=== PATIENT | male | born 1955 | race Caucasian/White ===

== ENCOUNTER 2021-08-28 15:19 | Inpatient (IN) | payer MEDICARE ==
[~2021-08-28] VITALS: Ht 170.2 cm; Wt 65.0 kg
[~2021-08-28 15:19] MED LIST: ALBU8.5H17 INH; ALLO100T PO; ASCO-162 PO; ASPI81TA52 PO; MULT-1141 PO; VARE1TAB24 PO
[2021-08-28 15:57] LABS: BASOPHILS % (AUTO) 0.4 % (0-1); EOSINOPHILS % (AUTO) 0.4 % (0-6); HEMATOCRIT 33.5 % (42.0-52.0); HEMOGLOBIN 10.9 g/dl (14.0-17.9); LYMPHOCYTES # (AUTO) 1.3 X10'3 (1.1-4.8); LYMPHOCYTES % (AUTO) 10.8 % (21-51); MEAN CORPUSCULAR HEMOGLOBIN 29.7 PG (27.0-31.0); MEAN CORPUSCULAR HGB CONC 32.4 g/dL (33.0-36.5); MEAN CORPUSCULAR VOLUME 91.7 FL (78-98); MEAN PLATELET VOLUME 7.6 FL (7.4-10.4); MONOCYTES # (AUTO) 0.8 X10'3 (0-0.9); MONOCYTES % (AUTO) 6.7 % (2-12); NEUTROPHILS # (AUTO) 9.8 X10'3 (1.8-7.7); NEUTROPHILS % (AUTO) 81.7 % (42-75); PLATELET COUNT 464 X10'3 (140-440); RED BLOOD COUNT 3.65 X10'6 (4.70-6.10); RED CELL DISTRIBUTION WIDTH 15.4 % (11.5-14.5)
[2021-08-28 16:10] LABS: ALANINE AMINOTRANSFERASE 23 U/L (12-78); ALBUMIN/GLOBULIN RATIO 0.8 (1.1-1.5); ALKALINE PHOSPHATASE 83 IU/L (46-116); ANION GAP 15 (8-16); ASPARTATE AMINO TRANSFERASE 34 U/L (10-37); BILIRUBIN,TOTAL 0.5 MG/DL (0.1-1.0); BLOOD UREA NITROGEN 28 MG/DL (7-18); BUN/CREATININE RATIO 31.8 (5.4-32.0); CALCIUM 9.2 MG/DL (8.5-10.1); CHLORIDE 98 MMOL/L (99-107); CREATININE 0.88 MG/DL (0.60-1.10); GLUCOSE 95 MG/DL (70-104); POTASSIUM 4.3 MMOL/L (3.5-5.1); SODIUM 137 MMOL/L (135-145); TOTAL CARBON DIOXIDE 24.1 MMOL/L (24-32); TOTAL PROTEIN 6.9 G/DL (6.4-8.2); eGFR 86 ML/MIN
[2021-08-28] MEDS ORDERED: normal saline 1000ml 1,000 ML IV ONE (16:50)
[2021-08-28] MEDS ORDERED: normal saline 1000ML IV soln IVB ONE (16:50)
[2021-08-28] MEDS ORDERED: iohexol 350MG/ML 100ml bottle IV ONE (16:56)
[2021-08-28 18:04] LABS: APTT 25 SECONDS (22-32); D-DIMER 6.48 MG/L FEU (0-0.50)
--- NOTE | 2021-08-28 18:30 | NUR ---
Pt pink, alert, no acute/resp distress. PIV site c/d/i s complication or adverse reaction. Bed in lowest position, wheels locked, rails up. Will continue to monitor for acute changes and further needs.
[2021-08-28] MEDS ORDERED: CefTRIAXone 2gm/NS 100ml IVPB 100 ML IV ONE (18:50)
[2021-08-28] MEDS ORDERED: levoFLOXACIN-Levaquin 750MG/D5 150 ML IV ONE (18:50)
[2021-08-28] MEDS ORDERED: ondansetron/PF 4mg/2ml inj IV PRN (20:20)
[2021-08-28] MEDS ORDERED: ondansetron 4mg rapidly disintigrating tab PO PRN (20:20)
[2021-08-28] MEDS ORDERED: acetaminophen 650mg rectal suppository RC PRN (20:20)
[2021-08-28] MEDS ORDERED: diphenhydrAMINE 50 mg/ml inj IV PRN (20:20)
[2021-08-28] MEDS ORDERED: ipratropium/albuterol 3ml nebule NEB PRN (20:20)
[2021-08-28] MEDS ORDERED: magnesium hydroxide 30ml (MOM) UD suspension PO PRN (20:20)
[2021-08-28] MEDS ORDERED: naloxone 0.4 mg/ml inj IV PRN (20:20)
[2021-08-28] MEDS ORDERED: acetaminophen 325mg tablet PO PRN ×2 (20:20)
[2021-08-28] MEDS ORDERED: morphine 2 MG/ML inj. syringe IV PRN ×2 (20:20)
[2021-08-28] MEDS ORDERED: diphenhydrAMINE 25mg capsule PO PRN (20:20)
[2021-08-28] MEDS ORDERED: mag hydrox/Alum hydrox/simeth 30ml oral suspension PO PRN (20:20)
[2021-08-28] MEDS ORDERED: normal saline 1000ml 1,000 ML IV SCH (20:20)
[2021-08-28] MEDS ORDERED: bisacodyl 10mg suppository rectal RC PRN (20:20)
[2021-08-28] MEDS ORDERED: temazepam 15mg capsule PO PRN (21:00)
[2021-08-28 21:03] LABS: CREATINE KINASE 43 U/L (39-308); LIPASE 100 U/L (73-393); MAGNESIUM 2.1 MG/DL (1.5-2.4); PHOSPHORUS 4.9 MG/DL (2.3-4.5)
[2021-08-28] MEDS: azithromycin/NS 500mg/250ml 250 ML IV SCH (21:29)
--- NOTE | 2021-08-28 22:36 | NUR ---
Pt pink, alert, no acute/resp distress. PIV site c/d/i s complication or adverse reaction. Bed in lowest position, wheels locked, rails up. Will continue to monitor for acute changes and further needs. Pt changes position of comfort as needed.
[2021-08-28] MEDS: HYDROcodone/acetaminophen 5mg/325mg tablet PO PRN (22:38)
[2021-08-29 01:30] LABS: BASOPHILS # (AUTO) 0.1 X10'3 (0-0.2); BASOPHILS % (AUTO) 0.6 % (0-1); EOSINOPHILS # (AUTO) 0.1 X10'3 (0-0.9); EOSINOPHILS % (AUTO) 0.6 % (0-6); HEMOGLOBIN 10.1 g/dl (14.0-17.9); LYMPHOCYTES # (AUTO) 0.9 X10'3 (1.1-4.8); LYMPHOCYTES % (AUTO) 8.8 % (21-51); MEAN CORPUSCULAR HEMOGLOBIN 30.6 PG (27.0-31.0); MEAN CORPUSCULAR HGB CONC 33.6 g/dL (33.0-36.5); MEAN CORPUSCULAR VOLUME 91.2 FL (78-98); MEAN PLATELET VOLUME 7.3 FL (7.4-10.4); MONOCYTES # (AUTO) 0.8 X10'3 (0-0.9); MONOCYTES % (AUTO) 7.6 % (2-12); NEUTROPHILS # (AUTO) 8.9 X10'3 (1.8-7.7); NEUTROPHILS % (AUTO) 82.4 % (42-75); PLATELET COUNT 380 X10'3 (140-440); RED BLOOD COUNT 3.29 X10'6 (4.70-6.10); RED CELL DISTRIBUTION WIDTH 15.1 % (11.5-14.5); WHITE BLOOD COUNT 10.8 X10'3 (4.5-11.0)
--- NOTE | 2021-08-29 01:46 | NUR ---
Pt pink, alert, no acute/resp distress. PIV site c/d/i s complication or adverse reaction. Bed in lowest position, wheels locked, rails up. Will continue to monitor for acute changes and further needs. Pt denies pain at this time.
[2021-08-29 01:52] LABS: ALBUMIN 2.4 G/DL (3.4-5.0); ANION GAP 11 (8-16); BLOOD UREA NITROGEN 21 MG/DL (7-18); BUN/CREATININE RATIO 30.9 (5.4-32.0); CALCIUM 8.1 MG/DL (8.5-10.1); CHLORIDE 104 MMOL/L (99-107); CHOL/HDL RATIO 3.9 (0.00-4.99); CHOLESTEROL 139 MG/DL (0-200); CREATININE 0.68 MG/DL (0.60-1.10); GLUCOSE 101 MG/DL (70-104); HDL CHOLESTEROL 36 MG/DL (35-60); LDL CHOLESTEROL 82 MG/DL (50-100); POTASSIUM 4.3 MMOL/L (3.5-5.1); SODIUM 141 MMOL/L (135-145); TOTAL CARBON DIOXIDE 26.5 MMOL/L (24-32); TRIGLYCERIDES 119 MG/DL (20-135); eGFR > 90 ML/MIN
--- NOTE | 2021-08-29 02:06 | NUR ---
Report called to Krys SMITH. Pt pink, no acute/resp distress. PIV site c/d/i s complication.
[2021-08-29 02:52] VITALS: BP 137/61
[2021-08-29] MEDS: HYDROcodone/acetaminophen 5mg/325mg tablet PO PRN ×4 (03:50→23:36)
[2021-08-29 04:50] LABS: CLARITY,URINE CLEAR (Clear); COLOR,URINE YELLOW (Yellow); GLUCOSE, URINE NEGATIVE (Neg); KETONES,URINE 15 mg/dl (Neg); LEUKOCYTE ESTERASE ,URINE NEGATIVE (Neg); NITRITES, URINE NEGATIVE (Neg); OCCULT BLOOD,URINE NEGATIVE (Neg); PH,URINE 5.5 (4.8-8.0); PROTEIN,URINE NEGATIVE (Neg); UROBILINOGEN,URINE 0.2 E.U/dL (0.2-1.0)
[2021-08-29 04:54] LABS: UA COLLECTION TYPE NON-SPECIFIED
[2021-08-29 05:03] LABS: URINE AMPHETAMINE SCREEN NEGATIVE (Neg); URINE BARBITUATE SCREEN NEGATIVE (Neg); URINE BENZODIAZEPINES SCREEN NEGATIVE (Neg); URINE CANNABINOID SCREEN NEGATIVE (Neg); URINE COCAINE SCREEN NEGATIVE (Neg); URINE METHADONE SCREEN NEGATIVE (Neg); URINE OPIATE SCREEN POSITIVE (Neg); URINE PHENCYCLIDINE SCREEN NEGATIVE (Neg)
[2021-08-29] MEDS: methylPREDNISolone sod succ 125mg/2ml vial IV SCH ×2 (08:00→20:43)
[2021-08-29] MEDS: azithromycin/NS 500mg/250ml 250 ML IV SCH (08:00)
[2021-08-29] MEDS: cefTRIAXone 1g/NS 100ml IVPB 100 ML IV SCH (08:00)
[2021-08-29] MEDS: pantoprazole 40mg Tablet.DR PO SCH (08:02)
[2021-08-29] MEDS: docusate sod 100mg capsule PO SCH ×2 (08:02→20:46)
[2021-08-29] MEDS: heparin, porcine 5000 units/ml vial SQ SCH ×2 (08:03→20:45)
[2021-08-29] MEDS ORDERED: LIDOCAINE 1% w/preservative (10 MG/ML) inj. 10mL VIAL ONE (08:40)
[2021-08-29] MEDS ORDERED: albuterol 2.5 MG/3 ML nebule NEB PRN (08:55)
[2021-08-29 08:58] VITALS: BP 110/49
[2021-08-29 09:07] VITALS: BP 114/53
[2021-08-29 09:47] LABS: BFSOURCE RIGHT PLEURAL FLD
[2021-08-29 09:48] LABS: PLEURAL FLUID PH 7.414 (7.63-7.65)
[2021-08-29 10:00] LABS: GLUCOSE,BODY FLUID 90 MG/DL; LDH,BODY FLUID 244 U/L; TOTAL PROTEIN,BODY FLUID 3.3 G/DL
[2021-08-29 10:35] LABS: LYMPHOCYTES,BODY FLUID 92 %; MONOCYTES,BODY FLUID 6 %; NEUTROPHILS,BODY FLUID 2 %
[2021-08-29 10:36] LABS: BF RBC COUNT 4200 /CU MM; BF WBC COUNT 1750 /CU MM (0-1000); BFAPPEAR TURBID; BFCOLOR YELLOW; BFVOLUME 60 ML
[2021-08-29 11:00] VITALS: BP 132/65
[2021-08-29] MEDS: nicotine 21mg patch - 24 hr TD SCH (14:02)
[2021-08-29 15:00] VITALS: BP 137/68
--- NOTE | 2021-08-29 18:28 | NUR ---
Problems reprioritized. Patient report given, questions answered & plan of care reviewed with LAREINE.
[2021-08-29 22:00] VITALS: BP 149/60
[2021-08-30 02:00] VITALS: BP 126/70
[2021-08-30] MEDS: HYDROcodone/acetaminophen 5mg/325mg tablet PO PRN ×3 (03:53→13:32)
[2021-08-30 06:00] VITALS: BP 128/70
[2021-08-30 06:30] LABS: ALBUMIN 2.4 G/DL (3.4-5.0); ANION GAP 11 (8-16); BLOOD UREA NITROGEN 16 MG/DL (7-18); BUN/CREATININE RATIO 23.9 (5.4-32.0); CALCIUM 8.4 MG/DL (8.5-10.1); CHLORIDE 99 MMOL/L (99-107); CREATININE 0.67 MG/DL (0.60-1.10); GLUCOSE 146 MG/DL (70-104); POTASSIUM 4.2 MMOL/L (3.5-5.1); SODIUM 135 MMOL/L (135-145); TOTAL CARBON DIOXIDE 25.5 MMOL/L (24-32); eGFR > 90 ML/MIN
[2021-08-30 06:40] LABS: BASOPHILS % (AUTO) 0.1 % (0-1); EOSINOPHILS % (AUTO) 0 % (0-6); LYMPHOCYTES # (AUTO) 0.7 X10'3 (1.1-4.8); LYMPHOCYTES % (AUTO) 8.8 % (21-51); MEAN CORPUSCULAR HEMOGLOBIN 30.3 PG (27.0-31.0); MEAN CORPUSCULAR HGB CONC 33.3 g/dL (33.0-36.5); MEAN CORPUSCULAR VOLUME 90.9 FL (78-98); MEAN PLATELET VOLUME 7.9 FL (7.4-10.4); MONOCYTES # (AUTO) 0.5 X10'3 (0-0.9); NEUTROPHILS # (AUTO) 6.7 X10'3 (1.8-7.7); NEUTROPHILS % (AUTO) 85.1 % (42-75); PLATELET COUNT 432 X10'3 (140-440); RED CELL DISTRIBUTION WIDTH 15.1 % (11.5-14.5); WHITE BLOOD COUNT 7.9 X10'3 (4.5-11.0)
[2021-08-30] MEDS: azithromycin/NS 500mg/250ml 250 ML IV SCH (07:18)
[2021-08-30] MEDS: methylPREDNISolone sod succ 125mg/2ml vial IV SCH (07:36)
[2021-08-30] MEDS: pantoprazole 40mg Tablet.DR PO SCH (07:36)
[2021-08-30] MEDS: nicotine 21mg patch - 24 hr TD SCH (07:36)
[2021-08-30] MEDS: heparin, porcine 5000 units/ml vial SQ SCH (07:36)
[2021-08-30] MEDS: docusate sod 100mg capsule PO SCH (07:36)
[2021-08-30] MEDS: cefTRIAXone 1g/NS 100ml IVPB 100 ML IV SCH (08:00)
[2021-08-30] MEDS ORDERED: ascorbic acid 500mg tablet PO SCH (08:00)
[2021-08-30] MEDS ORDERED: aspirin 81mg, enteric-coated 1 TAB TABLET.DR PO SCH (08:00)
[2021-08-30] MEDS ORDERED: allopurinol 100mg tablet PO SCH (08:00)
[2021-08-30 11:00] VITALS: BP 140/66
[2021-08-30] MEDS ORDERED: CEFU500T66 PO (12:25)
[2021-08-30] MEDS ORDERED: NICO-687 TD (12:25)
[2021-08-30] MEDS ORDERED: PRED20TA PO (12:25)
[2021-08-30] MEDS ORDERED: AZIT500T9 PO (12:25)
--- NOTE | 2021-08-30 12:45 | NUR ---
Discharge instructions discussed with patient and spouse. All questions answered. Pt states he understands. Discontinued IV. Pt will leave unit via wheelchair after lunch.
[2021-09-13] MEDS ORDERED: AZIT-83 PO (06:22)
[2021-09-13] MEDS ORDERED: OXYC-145 PO (14:37)
[2021-09-13] MEDS ORDERED: DICL50TA8 PO (14:37)
[2021-09-13] MEDS ORDERED: NICO-687 TOP (14:37)
== END 2021-08-30 13:15 | disposition home or self-care (01) | DRG 193 ==
LOC: ER 15:19 → ED HOLD 20:26 → PCU 3S 08-29 02:40
PROVIDERS: ADMIT Family Medicine; ATTEND Family Medicine
PROC: B32T1ZZ Computerized Tomography (CT Scan) of Left Pulmonary Artery using Low Osmolar Contrast (ICD-10-PCS; 2021-08-28)
PROC: B3201ZZ Computerized Tomography (CT Scan) of Thoracic Aorta using Low Osmolar Contrast (ICD-10-PCS; 2021-08-28)
PROC: B32S1ZZ Computerized Tomography (CT Scan) of Right Pulmonary Artery using Low Osmolar Contrast (ICD-10-PCS; 2021-08-28)
PROC: 0W993ZX Drainage of Right Pleural Cavity, Percutaneous Approach, Diagnostic (ICD-10-PCS; principal; 2021-08-29)
DX: J18.9 Pneumonia, unspecified organism (principal); J96.21 Acute and chronic respiratory failure with hypoxia; J44.0 Chronic obstructive pulmonary disease with (acute) lower respiratory infection; J44.1 Chronic obstructive pulmonary disease with (acute) exacerbation; J91.8 Pleural effusion in other conditions classified elsewhere; R04.2 Hemoptysis; I50.32 Chronic diastolic (congestive) heart failure; R65.10 Systemic inflammatory response syndrome (SIRS) of non-infectious origin without acute organ dysfunction; M10.9 Gout, unspecified; M79.652 Pain in left thigh; R22.2 Localized swelling, mass and lump, trunk; I11.0 Hypertensive heart disease with heart failure; D64.9 Anemia, unspecified; F17.200 Nicotine dependence, unspecified, uncomplicated; I73.9 Peripheral vascular disease, unspecified; Z79.82 Long term (current) use of aspirin; Z79.899 Other long term (current) drug therapy; Z88.8 Allergy status to other drugs, medicaments and biological substances; Z71.6 Tobacco abuse counseling
CPT/HCPCS: 32555; 36415; 71045; 71275; 80048; 80053; 80061; 80305; 81003; 82550; 82945; 83036; 83605; 83615; 83690; 83735; 83880; 83986; 84100; 84145; 84157; 84443; 84484; 85025; 85379; 85610; 85730; 87040; 87070; 87075; 87081; 89051; 93005; 93306; 94760; 99285; G0378; J0456; J0696; J1644; J1956; J2270; J2930; J7030; Q9967

== ENCOUNTER 2021-09-07 08:41 | Emergency (ER) | payer MEDICARE ==
[~2021-09-07] VITALS: Ht 172.7 cm; Wt 65.9 kg
[~2021-09-07 08:41] MED LIST changes: +AZIT500T9 PO; +CEFU500T66 PO; +NICO-687 TD; +PRED20TA PO
[2021-09-07] MEDS ORDERED: ipratropium/albuterol 3ml nebule NEB PRN (10:10)
[2021-09-07 10:52] LABS: BASOPHILS % (AUTO) 0.1 % (0-1); EOSINOPHILS % (AUTO) 0.2 % (0-6); HEMATOCRIT 29.3 % (42.0-52.0); HEMOGLOBIN 9.5 g/dl (14.0-17.9); LYMPHOCYTES # (AUTO) 0.6 X10'3 (1.1-4.8); LYMPHOCYTES % (AUTO) 4.1 % (21-51); MEAN CORPUSCULAR HEMOGLOBIN 29.6 PG (27.0-31.0); MEAN CORPUSCULAR HGB CONC 32.5 g/dL (33.0-36.5); MEAN CORPUSCULAR VOLUME 90.9 FL (78-98); MEAN PLATELET VOLUME 8.1 FL (7.4-10.4); MONOCYTES # (AUTO) 0.6 X10'3 (0-0.9); MONOCYTES % (AUTO) 4.1 % (2-12); NEUTROPHILS # (AUTO) 13.7 X10'3 (1.8-7.7); NEUTROPHILS % (AUTO) 91.5 % (42-75); PLATELET COUNT 261 X10'3 (140-440); RED BLOOD COUNT 3.23 X10'6 (4.70-6.10)
[2021-09-07] MEDS ORDERED: ibuprofen tablet 400 MG TABLET PO ONE (10:55)
[2021-09-07 11:01] LABS: ALANINE AMINOTRANSFERASE 37 U/L (12-78); ALBUMIN 2.4 G/DL (3.4-5.0); ALBUMIN/GLOBULIN RATIO 0.6 (1.1-1.5); ALKALINE PHOSPHATASE 119 IU/L (46-116); ANION GAP 12 (8-16); ASPARTATE AMINO TRANSFERASE 43 U/L (10-37); BILIRUBIN,TOTAL 0.5 MG/DL (0.1-1.0); BLOOD UREA NITROGEN 25 MG/DL (7-18); BUN/CREATININE RATIO 29.8 (5.4-32.0); CALCIUM 9.1 MG/DL (8.5-10.1); CHLORIDE 97 MMOL/L (99-107); CREATININE 0.84 MG/DL (0.60-1.10); GLUCOSE 115 MG/DL (70-104); POTASSIUM 4.5 MMOL/L (3.5-5.1); SODIUM 136 MMOL/L (135-145); TOTAL CARBON DIOXIDE 27.4 MMOL/L (24-32); TOTAL PROTEIN 6.3 G/DL (6.4-8.2); eGFR > 90 ML/MIN
[2021-09-07] MEDS ORDERED: HYDROcodone/acetaminophen 5mg/325mg tablet PO ONE (11:25)
[2021-09-07] MEDS ORDERED: HYDR-3972 PO (12:00)
[2021-09-07 12:58] VITALS: BP 139/68
[2021-09-13] MEDS ORDERED: AZIT-83 PO (06:22)
[2021-09-13] MEDS ORDERED: OXYC-145 PO (14:37)
[2021-09-13] MEDS ORDERED: NICO-687 TOP (14:37)
[2021-09-13] MEDS ORDERED: DICL50TA8 PO (14:37)
== END 2021-09-07 13:09 | disposition home or self-care (01) ==
LOC: ER 08:41
DX: S32.030A Wedge compression fracture of third lumbar vertebra, initial encounter for closed fracture (principal); J90 Pleural effusion, not elsewhere classified; R91.8 Other nonspecific abnormal finding of lung field; Z95.5 Presence of coronary angioplasty implant and graft; Z87.891 Personal history of nicotine dependence; Z87.890 Personal history of sex reassignment; Z86.79 Personal history of other diseases of the circulatory system; Z88.1 Allergy status to other antibiotic agents; Z79.82 Long term (current) use of aspirin; Z79.2 Long term (current) use of antibiotics; Z79.899 Other long term (current) drug therapy; X58.XXXA Exposure to other specified factors, initial encounter; Y93.89 Activity, other specified; Y92.89 Other specified places as the place of occurrence of the external cause; Y99.8 Other external cause status
CPT/HCPCS: 36415; 71046; 72131; 80053; 85025; 85610; 93005; 94640; 94760; 99285